=== PATIENT | male | born 1960 | race Caucasian/White ===

== ENCOUNTER 2018-06-16 20:51 | Emergency (ER) | payer OTHER ==
[~2018-06-16] VITALS: Ht 170.2 cm; Wt 87.5 kg
[~2018-06-16 20:51] MED LIST: DICLOFENAC SOD75 M1 PO; DICLOFENAC SODI75 MG PO; MELOXICAM15 M1 PO; METFORMIN HCL1000 MG GT; NEU300 PO; NORCO1 TA2 PO; SEROQUEL25 MG PO; SERTRALINE HYD100 MG PO; TENORMIN50 MG PO; TRAZODONE50 M1 PO; VOLTAREN; [UNRECOGNIZED DRUG - OTHER]
[2018-06-16 20:55] VITALS: Ht 170.2 cm; Wt 87.5 kg
[2018-06-16 23:10] VITALS: BP 141/87
== END 2018-06-16 23:10 | disposition home or self-care (01) ==
LOC: ED 20:51
DX: M25.511 Pain in right shoulder (principal); I10 Essential (primary) hypertension; E11.9 Type 2 diabetes mellitus without complications; F32.9 Major depressive disorder, single episode, unspecified; W01.0XXA Fall on same level from slipping, tripping and stumbling without subsequent striking against object, initial encounter; Y93.89 Activity, other specified; Y92.098 Other place in other non-institutional residence as the place of occurrence of the external cause; Y99.8 Other external cause status

== ENCOUNTER 2018-06-26 20:23 | Emergency (ER) | payer OTHER ==
[2018-06-26 23:46] VITALS: BP 162/99
== END 2018-06-26 23:46 | disposition home or self-care (01) ==
LOC: ED 20:23
DX: M79.602 Pain in left arm (principal); I10 Essential (primary) hypertension; E11.9 Type 2 diabetes mellitus without complications; F32.9 Major depressive disorder, single episode, unspecified; Z76.0 Encounter for issue of repeat prescription